=== PATIENT | female | born 1970 | race Caucasian/White ===

== ENCOUNTER → 2016-08-23 | Outpatient (CLI) | payer MEDICAID ==
--- NOTE | 2016-08-23 16:17 | CR ---
EXAMINATION: Two-view chest (PA and Lateral views). HISTORY: Hypertension. FINDINGS: The trachea is midline. The cardiomediastinal silhouette is within normal limits. No pulmonary infil trates, effusions or pneumothorax. Osseous structures appear unremarkable. IMPRESSION: No acute cardiopulmonary process.
== END ==
LOC: MW.CHFP 14:43
PROVIDERS: ATTEND Physician Assistant
DX: I10 Essential (primary) hypertension (principal)
CPT/HCPCS: 36415; 71020; 71020-26; 85025

== ENCOUNTER → 2016-09-28 | Outpatient (CLI) | payer MEDICAID | LOC: MW.CHFP 12:30 | PROVIDERS: ATTEND Nurse Practitioner Family | DX: M10.9 Gout, unspecified (principal) | CPT/HCPCS: 36415; 84550 ==

== ENCOUNTER 2018-07-28 18:58 | Emergency (ER) | payer BC ==
[2018-07-28] MEDS ORDERED: Sodium Chloride 0.9% 2.5 ML Syringe FLUSH PRN (19:13)
[2018-07-28] MEDS ORDERED: Sodium Chloride 0.9% 1,000 ML IV ONE (19:13)
[2018-07-28] MEDS ORDERED: Sodium Chloride 0.9% 10 ML Syringe FLUSH PRN (19:13)
--- NOTE | 2018-07-28 19:16 | EDM.PDOC ---
ED HPI GENERAL MEDICAL PROBLEM - General Chief Complaint: Cardiovascular Problem Stated Complaint: HIGH BP Time Seen by Provider: 07/28/18 19:04 Source of Information: Reports: Patient History Limitations: Reports: No Limitations - History of Present Illness INITIAL COMMENTS - FREE TEXT/NARRATIVE: HISTORY AND PHYSICAL: History of present illness: Patient is a 48-year-old female who presents to the emergency room with concerns of low blood pressure, dizziness, weakness and near syncope. She has been seeing our broker, Dr. Dobbs, for blood pressure management as she has had hypertension. She was last seen on 07/12/18 and had her medications adjusted at that time. This morning she woke up with generalized weakness and felt dizzy like she could "pass out". Initial blood pressure she took was 91/56 second reading approximately an hour later was 89/55. She states she is compliant with her medications and there is no way that she would've taken an additional pill or gotten her medications mixed up. States she has a cardiac ultrasound on 08/13/2018. She denies any fever, chills, chest pain, shortness of breath or cough. Denies any abdominal pain, nausea, vomiting, diarrhea, constipation or dysuria. She has been eating and drinking appropriately. Review of systems: As per history of present illness and below otherwise all systems reviewed and negative. Past medical history: As per history of present illness and as reviewed below otherwise noncontributory. Surgical history: As per history of present illness and as reviewed below otherwise noncontributory. Social history: See social history for further information Family history: As per history of present illness and as reviewed below otherwise noncontributory. Physical exam: General: Well-developed and well-nourished 48-year-old female. Alert and oriented. Nontoxic appearing and in no acute distress. HEENT: Atraumatic, normocephalic, pupils equal and reactive bilaterally, negative for conjunctival pallor or scleral icterus, mucous membranes moist, TMs normal bilaterally, throat clear, neck supple, nontender, trachea midline. No drooling or trismus noted. No meningeal signs. No hot potato voice noted. Lungs: Clear to auscultation, breath sounds equal bilaterally, chest nontender. Heart: S1S2, regular rate and rhythm without overt murmur Abdomen: Soft, nondistended, nontender. Negative for masses or hepatosplenomegaly. Negative for costovertebral tenderness. Pelvis: Stable nontender. Genitourinary: Deferred. Rectal: Deferred. Skin: Intact, warm, dry. No lesions or rashes noted. Extremities: Atraumatic, negative for cords or calf pain. Neurovascular unremarkable. Neuro: Awake, alert, oriented. Cranial nerves II through XII unremarkable. Cerebellum unremarkable. Motor and sensory unremarkable throughout. Exam nonfocal. Notes: 05/10/2018: Patient did have a CTA of the abdomen and pelvis for her hypertensive urgency which showed unremarkable renal arteries bilaterally. Patient does have low potassium today and slightly elevated BUN and creatinine. She states she was put on a new diuretic, chlorthalidone. Which could be the cause of both lab results. Patient states she does feel improved since receiving IV fluids. Did offer her admission for the near syncope sensation. She declines. Encouraged her to follow-up with the broker, calling his office on Sunday as I feel her diuretic may need to be changed. Patient voices understanding and is agreeable to plan of care. Denies further questions or concerns at this time. Supportive care measures were reviewed and discussed. Voices understanding and is agreeable to plan of care. Denies any further questions or concerns at this time. Diagnostics: CBC, CMP, orthostatic vital signs, EKG, one view chest Therapeutics: IV fluids, K-Dur Prescription: K-Dur Impression: Hypokalemia Dizziness Plan: 1. Please follow up with Dr Dobbs (Cardiology) for adjustment of your medications. The diuretic may be causing your potassium. Your potassium today was 3.0. Please take your K-Dur (potassium) as directed. 2. Increase your oral fluids. Position changes slowly 3. Please follow-up with your primary care provider and/or cardiology as we discussed. Return to the ED as needed and as discussed. Definitive disposition and diagnosis as appropriate pending reevaluation and review of above. - Related Data Allergies Allergy/AdvReac Type Severity Reaction Status Date / Time aspirin Allergy Hives Verified 07/28/18 19:15 ibuprofen [From Advil] Allergy Airway Verified 07/28/18 19:11 Tightness Home Meds: Home Meds Chlorthalidone 25 mg PO DAILY 07/28/18 [History] Lisinopril 20 mg PO DAILY 07/28/18 [History] Metoprolol Succinate [Toprol XL 100mg] 100 mg PO DAILY 07/28/18 [History] ED ROS GENERAL - Review of Systems Review Of Systems: ROS reveals no pertinent complaints other than HPI. ED EXAM, GENERAL - Physical Exam Exam: See Below (See dictation) Course - Vital Signs Last Recorded V/S: Last Vital Signs Temp 96.4 F 07/28/18 19:18 Pulse 99 07/28/18 19:18 Resp 18 07/28/18 19:18 BP 163/100 H 07/28/18 19:18 Pulse Ox 100 07/28/18 19:18 - Orders/Labs/Meds Orders: Active Orders 24 hr Category Date Time Status EKG Documentation Completion [RC] STAT Care 07/28/18 19:05 Active Orthostatic Vital Signs [RC] ASDIRECTED Care 07/28/18 19:13 Active Sodium Chloride 0.9% [Normal Saline] 1,000 ml Med 07/28/18 19:13 Active IV STAT Sodium Chloride 0.9% [Saline Flush] Med 07/28/18 19:13 Active 10 ml FLUSH ASDIRECTED PRN Sodium Chloride 0.9% [Saline Flush] Med 07/28/18 19:13 Active 2.5 ml FLUSH ASDIRECTED PRN Saline Lock Insert [OM.PC] Stat Oth 07/28/18 19:13 Ordered Medication Orders Sodium Chloride (Normal Saline) 1,000 mls @ 150 mls/hr IV STAT ONE Stop: 07/29/18 01:52 Last Admin: 07/28/18 19:23 Dose: 150 mls/hr Sodium Chloride (Saline Flush) 10 ml FLUSH ASDIRECTED PRN PRN Reason: Keep Vein Open Sodium Chloride (Saline Flush) 2.5 ml FLUSH ASDIRECTED PRN PRN Reason: Keep Vein Open Labs: Laboratory Tests 07/28/18 07/28/18 07/28/18 Range/Units 19:20 19:20 19:20 WBC 11.60 H (4.0-11.0) K/uL RBC 4.46 (4.30-5.90) M/uL Hgb 13.7 (12.0-16.0) g/dL Hct 41.0 (36.0-46.0) % MCV 91.9 (80.0-98.0) fL MCH 30.7 (27.0-32.0) pg MCHC 33.4 (31.0-37.0) g/dL RDW Std Deviation 48.2 (28.0-62.0) fl RDW Coeff of Praveen 14 (11.0-15.0) % Plt Count 286 (150-400) K/uL MPV 10.20 (7.40-12.00) fL Neut % (Auto) 60.0 (48.0-80.0) % Lymph % (Auto) 27.8 (16.0-40.0) % [place] % (Auto) 11.0 (0.0-15.0) % Eos % (Auto) 0.9 (0.0-7.0) % Baso % (Auto) 0.3 (0.0-1.5) % Neut # (Auto) 7.0 H (1.4-5.7) K/uL Lymph # (Auto) 3.2 H (0.6-2.4) K/uL [place] # (Auto) 1.3 H (0.0-0.8) K/uL Eos # (Auto) 0.1 (0.0-0.7) K/uL Baso # (Auto) 0.0 (0.0-0.1) K/uL Nucleated RBC % 0.0 /100WBC Nucleated RBCs # 0 K/uL Sodium 136 (136-145) mmol/L Potassium 3.0 L (3.5-5.1) mmol/L Chloride 96 L (98-107) mmol/L Carbon Dioxide 22.4 (21.0-32.0) mmol/L BUN 20 H (7.0-18.0) mg/dL Creatinine 2.4 H (0.6-1.0) mg/dL Est Cr Clr Drug Dosing 22.67 mL/min Estimated GFR (MDRD) 21.5 ml/min Glucose 170 H (74-106) mg/dL Calcium 9.5 (8.5-10.1) mg/dL Total Bilirubin 0.9 (0.2-1.0) mg/dL AST 23 (15-37) IU/L ALT 36 (14-63) IU/L Alkaline Phosphatase 112 (46-116) U/L Troponin I < 0.050 (0.000-0.056) ng/mL Total Protein 7.9 (6.4-8.2) g/dL Albumin 4.0 (3.4-5.0) g/dL Globulin 3.9 (2.6-4.0) g/dL Albumin/Globulin Ratio 1.0 (0.9-1.6) Urine Color Urine Appearance Urine pH (5.0-8.0) Ur Specific [place] (1.001-1.035) Urine Protein (NEGATIVE) mg/dL Urine Glucose (UA) (NEGATIVE) mg/dL Urine Ketones (NEGATIVE) mg/dL Urine Occult Blood (NEGATIVE) Urine Nitrite (NEGATIVE) Urine Bilirubin (NEGATIVE) Urine Urobilinogen (<2.0) EU/dL Ur Leukocyte Esterase (NEGATIVE) Urine RBC (0-2/HPF) Urine WBC (0-5/HPF) Ur Epithelial Cells (NONE-FEW) Amorphous Sediment (NEGATIVE) Urine Bacteria (NEGATIVE) Urine Mucus (NONE-MOD) 07/28/18 Range/Units 20:20 WBC (4.0-11.0) K/uL RBC (4.30-5.90) M/uL Hgb (12.0-16.0) g/dL Hct (36.0-46.0) % MCV (80.0-98.0) fL MCH (27.0-32.0) pg MCHC (31.0-37.0) g/dL RDW Std Deviation (28.0-62.0) fl RDW Coeff of Praveen (11.0-15.0) % Plt Count (150-400) K/uL MPV (7.40-12.00) fL Neut % (Auto) (48.0-80.0) % Lymph % (Auto) (16.0-40.0) % [place] % (Auto) (0.0-15.0) % Eos % (Auto) (0.0-7.0) % Baso % (Auto) (0.0-1.5) % Neut # (Auto) (1.4-5.7) K/uL Lymph # (Auto) (0.6-2.4) K/uL [place] # (Auto) (0.0-0.8) K/uL Eos # (Auto) (0.0-0.7) K/uL Baso # (Auto) (0.0-0.1) K/uL Nucleated RBC % /100WBC Nucleated RBCs # K/uL Sodium (136-145) mmol/L Potassium (3.5-5.1) mmol/L Chloride (98-107) mmol/L Carbon Dioxide (21.0-32.0) mmol/L BUN (7.0-18.0) mg/dL Creatinine (0.6-1.0) mg/dL Est Cr Clr Drug Dosing mL/min Estimated GFR (MDRD) ml/min Glucose (74-106) mg/dL Calcium (8.5-10.1) mg/dL Total Bilirubin (0.2-1.0) mg/dL AST (15-37) IU/L ALT (14-63) IU/L Alkaline Phosphatase (46-116) U/L Troponin I (0.000-0.056) ng/mL Total Protein (6.4-8.2) g/dL Albumin (3.4-5.0) g/dL Globulin (2.6-4.0) g/dL Albumin/Globulin Ratio (0.9-1.6) Urine Color YELLOW Urine Appearance CLEAR Urine pH 5.5 (5.0-8.0) Ur Specific [place] 1.015 (1.001-1.035) Urine Protein TRACE H (NEGATIVE) mg/dL Urine Glucose (UA) NEGATIVE (NEGATIVE) mg/dL Urine Ketones NEGATIVE (NEGATIVE) mg/dL Urine Occult Blood NEGATIVE (NEGATIVE) Urine Nitrite NEGATIVE (NEGATIVE) Urine Bilirubin NEGATIVE (NEGATIVE) Urine Urobilinogen 0.2 (<2.0) EU/dL Ur Leukocyte Esterase NEGATIVE (NEGATIVE) Urine RBC 0-2 (0-2/HPF) Urine WBC 0-3 (0-5/HPF) Ur Epithelial Cells FEW (NONE-FEW) Amorphous Sediment LIGHT (NEGATIVE) Urine Bacteria FEW (NEGATIVE) Urine Mucus LIGHT (NONE-MOD) Meds: Medications Generic Name Dose Route Start Last Admin Trade Name Freq PRN Reason Stop Dose Admin Sodium Chloride 1,000 mls @ 150 mls/hr 07/28/18 19:13 07/28/18 19:23 Normal Saline IV 07/29/18 01:52 150 mls/hr STAT ONE Administration Sodium Chloride 10 ml 07/28/18 19:13 Saline Flush FLUSH ASDIRECTED PRN Keep Vein Open Sodium Chloride 2.5 ml 07/28/18 19:13 Saline Flush FLUSH ASDIRECTED PRN Keep Vein Open Discontinued Medications Generic Name Dose Route Start Last Admin Trade Name Josey PRN Reason Stop Dose Admin Potassium Chloride 40 meq 07/28/18 20:05 Klor-Con M20 PO 07/28/18 20:06 NOW STA Departure - Departure Time of Disposition: 20:49 Disposition: Home, Self-Care 01 Clinical Impression: Hypokalemia, Dizziness Instructions: Hypokalemia Referrals: PCP,Unknown [Primary Care Provider] - Forms: ED Department Discharge Additional Instructions: The following information is given to patients seen in the emergency department who are being discharged to home. This information is to outline your options for follow-up care. We provide all patients seen in our emergency department with a follow-up referral. The need for follow-up, as well as the timing and circumstances, are variable depending upon the specifics of your emergency department visit. If you don't have a primary care physician on staff, we will provide you with a referral. We always advise you to contact your personal physician following an emergency department visit to inform them of the circumstance of the visit and for follow-up with them and/or the need for any referrals to a consulting specialist. The emergency department will also refer you to a specialist when appropriate. This referral assures that you have the opportunity for follow-up care with a specialist. All of these measure are taken in an effort to provide you with optimal care, which includes your follow-up. Under all circumstances we always encourage you to contact your private physician who remains a resource for coordinating your care. When calling for follow-up care, please make the office aware that this follow-up is from your recent emergency room visit. If for any reason you are refused follow-up, please contact the [facility] Emergency Department at and asked to speak to the emergency department charge nurse. [facility] [address] [place] [id number] [id number] 1. Please follow up with Dr Dobbs (Cardiology) for adjustment of your medications. The diuretic may be causing your potassium. Your potassium today was 3.0 (low). Please take your K-Dur (potassium) as directed; you may crush tablet if needed. 2. Increase your oral fluids. Position changes slowly 3. Please follow-up with your primary care provider and/or cardiology as we discussed. Return to the ED as needed and as discussed. - My Orders Last 24 Hours: My Active Orders 07/28/18 19:05 EKG Documentation Completion [RC] STAT 07/28/18 19:13 Orthostatic Vital Signs [RC] ASDIRECTED Sodium Chloride 0.9% [Normal Saline] 1,000 ml IV STAT Sodium Chloride 0.9% [Saline Flush] 10 ml FLUSH ASDIRECTED PRN Sodium Chloride 0.9% [Saline Flush] 2.5 ml FLUSH ASDIRECTED PRN Saline Lock Insert [OM.PC] Stat - Assessment/Plan Last 24 Hours: My Active Orders 07/28/18 19:05 EKG Documentation Completion [RC] STAT 07/28/18 19:13 Orthostatic Vital Signs [RC] ASDIRECTED Sodium Chloride 0.9% [Normal Saline] 1,000 ml IV STAT Sodium Chloride 0.9% [Saline Flush] 10 ml FLUSH ASDIRECTED PRN Sodium Chloride 0.9% [Saline Flush] 2.5 ml FLUSH ASDIRECTED PRN Saline Lock Insert [OM.PC] Stat
[2018-07-28] MEDS ORDERED: Potassium Chloride 20 MEQ Tab.ER PO STA (20:05)
--- NOTE | 2018-07-28 20:25 | CR ---
INDICATION: near syncope INDICATION: Near syncope. TECHNIQUE: Chest 1 view. COMPARISON: None FINDINGS: Cardiovascular and mediastinum: Heart size and vasculature are normal in caliber and appearance. Mediastinum is within normal limits. Lungs and pleural space: Lungs are clear. No sign of infiltrate or mass. No sign of pleural effusion. No pneumothorax. Bones and soft tissues: No significant findings. IMPRESSION: Lungs are clear. Dictated by Jay Garcia MD @ 07/28/2018 8:24:12 PM Dictated by: Jay Garcia MD @ 07/28/2018 20:24:21 (Electronically Signed)
== END 2018-07-28 21:10 | disposition home or self-care (01) ==
LOC: MW.ED 18:58
DX: R42 Dizziness and giddiness (principal); E87.6 Hypokalemia; Z88.8 Allergy status to other drugs, medicaments and biological substances; Z79.899 Other long term (current) drug therapy
CPT/HCPCS: 71045; 80053; 81001; 84484; 85025; 93005; 96360; 96361; 99284; A9270; J7040

== ENCOUNTER 2019-07-30 07:11 | Day surgery (SDC) | payer BC ==
[~2019-07-30 07:11] MED LIST: Lactated Ringers 1,000 ML IV SCH
--- NOTE | 2019-07-30 07:51 | PCM.PREANE ---
Preanesthetic Assessment - Anesthesia/Transfusion/Family Hx Anesthesia History: Prior Anesthesia Without Reaction Family History of Anesthesia Reaction: No Transfusion History: No Prior Transfusion(s) Intubation History: Unknown - Review of Systems General: No Symptoms Pulmonary: No Symptoms Cardiovascular: No Symptoms Gastrointestinal: Hematochezia, Other (rectal pain) Neurological: No Symptoms Other: Reports: None - Physical Assessment Height: 5 ft 2 in Weight: 72.121 kg ASA Class: 2 Mental Status: Alert & Oriented x3 Airway Class: Mallampati = 2 Dentition: Reports: Normal Dentition (retainer holders at the bottom 2 teeth) Thyro-Mental Finger Breadths: 3 Mouth Opening Finger Breadths: 3 ROM/Head Extension: Full Lungs: Clear to Auscultation, Normal Respiratory Effort Cardiovascular: Regular Rate, Regular Rhythm - Lab Values: Laboratory Last Values Urine HCG, Qual NEGATIVE (NEGATIVE) 07/30/19 07:30 - Allergies Allergies/Adverse Reactions: Allergies Allergy/AdvReac Type Severity Reaction Status Date / Time aspirin Allergy Hives Verified 07/25/19 10:02 - Blood Blood Available: No - Anesthesia Plan Pre-Op Medication Ordered: None - Acknowledgements Anesthesia Type Planned: MAC Pt an Appropriate Candidate for the Planned Anesthesia: Yes Alternatives and Risks of Anesthesia Discussed w Pt/Guardian: Yes Pt/Guardian Understands and Agrees with Anesthesia Plan: Yes PreAnesthesia Questionnaire HEENT History: Reports: Other (See Below) Other HEENT History: wears glasses/contacts, has 2 pieces of metal wire cemented to her teeth from previous braces Cardiovascular History: Reports: High Cholesterol, Hypertension Gastrointestinal History: Reports: GERD, Hiatal Hernia Musculoskeletal History: Reports: Back Pain, Chronic, Gout, Neck Pain, Chronic Neurological History: Reports: Headaches, Chronic, Seizure, Other (See Below) Other Neuro History: hx of febrile seizures as an , hx of motion sickness Psychiatric History: Reports: Anxiety Endocrine/Metabolic History: Reports: Other (See Below) Other Endocrine/Metabolic History: thyroid is being monitored - Infectious Disease History Infectious Disease History: Reports: Chicken Pox - Past Surgical History Head Surgeries/Procedures: Reports: None HEENT Surgical History: Reports: Tonsillectomy GI Surgical History: Reports: Cholecystectomy, Colonoscopy, Other (See Below) Other GI Surgeries/Procedures: Excision of Pilonidal cyst Female Surgical History: Reports: D&C, LEEP - SUBSTANCE USE Smoking Status *Q: Current Some Day Smoker Tobacco Use Within Last Twelve Months: Cigarettes Recreational Drug Use History: No - HOME MEDS Home Medications: Home Meds Chlorthalidone 25 mg PO QAM 07/28/18 [History] Lisinopril 20 mg PO QAM 07/28/18 [History] Metoprolol Succinate [Toprol XL 100mg] 100 mg PO QAM 07/28/18 [History] C/Sourcherry/Celery/Grape Seed [Tart Gray] 1 cap PO DAILY 07/25/19 [History] Cholecalciferol (Vitamin D3) [Vitamin D3] 1,000 unit PO DAILY 07/25/19 [History] Hydrocortisone [Procto-Med Hc] 1 - 2 applic TOP BID PRN 07/25/19 [History] Ibuprofen 400 mg PO BID 07/25/19 [History] LORazepam [Ativan] 0.25 - 0.5 mg PO DAILY PRN 07/25/19 [History] Potassium Chloride [Klor-Con] 40 meq PO QAM 07/25/19 [History] - CURRENT (IN HOUSE) MEDS Current Meds: Current Medications Lactated Ringer's (Ringers, Lactated) 1,000 mls @ 125 mls/hr IV ASDIRECTED MARY
[2019-07-30] MEDS ORDERED: Midazolam 1 MG/ML 2 ML SDV ONE (08:37)
[2019-07-30] MEDS ORDERED: Propofol 200 MG/20 ML SDV ONE ×2 (08:37→09:50)
[2019-07-30] MEDS ORDERED: Glycopyrrolate 0.2 MG/ML SDV ONE (08:40)
--- NOTE | 2019-07-30 10:35 | PCM.OPNOTE ---
- General Post-Op/Procedure Note Date of Surgery/Procedure: 07/30/19 Operative Procedure(s): egd w bx. colonoscopy w snare Findings: see [id number] Pre Op Diagnosis: tenesmus,BRBPR and early satiety Post-Op Diagnosis: Same Anesthesia Technique: Moderate Sedation Primary Surgeon: Lauri George Pathology: egd bx colon random bx 15 cm when scope advance, 5 mm sessile polyp, snared. Complications: None Condition: Good Free Text/Narrative:: Intake & Output 07/29/19 07/30/19 07/30/19 22:59 06:59 14:59 Intake Total 900 Balance 900
--- NOTE | 2019-07-30 10:42 | PCM.POSTAN ---
POST ANESTHESIA ASSESSMENT - MENTAL STATUS Mental Status: Alert, Oriented - VITAL SIGNS Vital Signs: Last Vital Signs Temp 36.9 C 07/30/19 10:32 Pulse 67 07/30/19 10:32 Resp 14 07/30/19 10:32 BP 99/71 07/30/19 10:32 Pulse Ox 99 07/30/19 10:32 - RESPIRATORY Respiratory Status: Respiratory Rate WNL, Airway Patent, O2 Saturation Stable - CARDIOVASCULAR CV Status: Pulse Rate WNL, Blood Pressure Stable - GASTROINTESTINAL GI Status: No Symptoms - PAIN Pain Score: 0 - POST OP HYDRATION Hydration Status: Adequate & Stable - OBSERVATIONS Free Text/Narrative:: No anesthesia problems
--- NOTE | 2019-07-30 10:58 | PCM48HPAN ---
Post Anesthesia Note - EVALUATION WITHIN 48HRS OF ANESTHETIC Vital Signs in Normal Range: Yes Patient Participated in Evaluation: Yes Respiratory Function Stable: Yes Airway Patent: Yes Cardiovascular Function Stable: Yes Hydration Status Stable: Yes Pain Control Satisfactory: Yes Nausea and Vomiting Control Satisfactory: Yes Mental Status Recovered: Yes Vital Signs: Last Vital Signs Temp 36.9 C 07/30/19 10:32 Pulse 62 07/30/19 10:50 Resp 16 07/30/19 10:50 BP 112/75 07/30/19 10:50 Pulse Ox 100 07/30/19 10:50 - COMMENTS/OBSERVATIONS Free Text/Narrative:: No anesthesia problems.
--- NOTE | 2019-07-30 16:26 | OR ---
SURGEON: Lauri George MD DATE OF PROCEDURE: 07/30/2019 PREOPERATIVE DIAGNOSES: Rectal bleeding and early satiety. PROCEDURES PERFORMED: Esophagogastroduodenoscopy with biopsy and colonoscopy with snare polypectomy. DESCRIPTION OF PROCEDURE: EGD: The patient was taken to the endoscopy room, and with the DIGESTER OPERATOR HELPER, Diprivan was administered. A well-lubricated EGD scope was gently inserted through the oropharynx, down the esophagus, passing through the gastroesophageal junction, into the stomach. The mucosa was examined upon the passage. Any etiology will be noted. Once in the stomach, we continued to advance to the distal antrum, passed through the pylorus into the second portion of the duodenum. Again, the mucosa was examined for any abnormality and etiology. The scope was then retrieved back to the stomach and then retroflexed to look at the fundus of the stomach. If a biopsy was indicated, we will biopsy the antrum, body, and gastroesophageal junction. The air will be sucked out while the scope is retrieved to reduce the patient's discomfort. The patient tolerated the procedure well. There were no intraoperative complications. Dr. George was present through the whole procedure. Prior to surgery, a time-out had been called, the patient identified, procedure identified and antibiotic administered. The patient was taken to the endoscopy room. A time out was called, patient identified, and procedure identified. Diprivan was then administrated. Patient went from awake to sleep, hearing doctor talking or door closing is normal. Perineum inspection and digital examination were then performed. A well- lubricated colonoscope was gently inserted through the rectum, advanced past the rectosigmoid junction, the descending colon, splenic flexure, transverse colon, hepatic flexure, ascending colon, arrived to the cecum. Cecum was identified as dictated in the finding. Then the scope was carefully withdrawn while attention was paid to the mucosal surface for any abnormality. Air will be sucked out during the scope withdrawal. At the rectum, retroflexed to examine any rectal diseases, fistula or hemorrhoids. During mucosal examination, abnormality or polyp encountered. Using snare equipment, the abnormality or the polyp was then snared off using electrocautery. The patient tolerated procedure well. There were no intraoperative complications, and Dr. George was present throughout the whole procedure. FINDINGS: EGD findings: 1. The patient is easily sedated with DIGESTER OPERATOR HELPER and Diprivan, the patient is soundly snoring. 2. Oropharynx and proximal esophagus are free of disease. GE junction at 40 shows mild salmon-colored change consistent with mild GERD. Stomach rugae are normal in appearance and antrum looks fine. Duodenum grossly normal. Retroflexed look at the fundus of the stomach, there is no hiatal hernia. Biopsy done at antrum, body, GE junction at 40, and sucked out the air while scope pulling out. During the whole study, there is no blood, ulcer, bile, or food particle observed. Colonoscopy findings: 1. The patient is easily sedated with DIGESTER OPERATOR HELPER and Diprivan, the patient is soundly snoring. 2. Bowel prep is average with moderate amount of liquid stool, no semi-formed stool. 3. Colon is rather straightforward. Cecum indicated by ileocecal fold, one-to- one indentation, appendiceal orifice. ScopeGuide is pointing south. Light emittance is not observed. Mucosa examined upon scope pulling out with constant irrigation. The patient has mild diverticulosis at the left colon. No signs or symptoms of diverticulitis, just a few diverticula. The patient has a small 5 mm sessile polyp at distance 15 cm when the scope go in and it was snared, captured, and sent for pathology. Other than that, no other mass, growth, inflammation, stricture, ulceration, AV malformation, bleeding, none of those. The patient has mild external hemorrhoids, no internal hemorrhoids. Examination of the rectum area, there is no gross abnormality. MAX / MARIA DE JESUS /[id number]
== END 2019-07-30 11:20 | disposition home or self-care (01) ==
LOC: MW.SDS 07:11
PROVIDERS: ATTEND Surgery
DX: D12.6 Benign neoplasm of colon, unspecified (principal); K57.30 Diverticulosis of large intestine without perforation or abscess without bleeding; K22.8 Other specified diseases of esophagus; K20.9 Esophagitis, unspecified; K64.4 Residual hemorrhoidal skin tags; I10 Essential (primary) hypertension; E78.5 Hyperlipidemia, unspecified; F41.9 Anxiety disorder, unspecified; F17.200 Nicotine dependence, unspecified, uncomplicated; Z79.899 Other long term (current) drug therapy; Z98.890 Other specified postprocedural states
CPT/HCPCS: 43239; 45385; 81025; J2250; J2704; J3490; J7120; 88305; 88312

== ENCOUNTER 2022-05-08 11:24 | Emergency (ER) | payer BC ==
[2022-05-08 13:27] LABS: CORONAVIRUS COVID-19 NAA NEGATIVE (NEGATIVE); INFLUENZA A NAA POSITIVE (NEGATIVE); INFLUENZA B NAA NEGATIVE (NEGATIVE); RESPIRATORY SYNCYTIAL VIR NAA NEGATIVE (NEGATIVE)
[2022-05-08] MEDS ORDERED: Albuterol 8 GM Inhaler INH ONE (14:20)
== END 2022-05-08 19:47 | disposition home or self-care (01) ==
LOC: MW.ED 11:24
DX: J10.1 Influenza due to other identified influenza virus with other respiratory manifestations (principal); E78.00 Pure hypercholesterolemia, unspecified; I10 Essential (primary) hypertension; Z88.8 Allergy status to other drugs, medicaments and biological substances; Z79.899 Other long term (current) drug therapy; Z20.822 Contact with and (suspected) exposure to COVID-19
CPT/HCPCS: 0241U; 71045; 93005; 99284; A9270

== ENCOUNTER 2022-05-14 13:44 | Emergency (ER) | payer BC ==
[2022-05-14] MEDS ORDERED: predniSONE 20 MG Tab PO STA (16:14)
[2022-05-14] MEDS ORDERED: Albuterol/Ipratropium 3.0-0.5 MG/3 ML Neb Soln NEB ONE (16:15)
[2022-05-14 17:07] LABS: CARBON DIOXIDE,CO2 28.2 mmol/L (21.0-32.0)
== END 2022-05-14 18:00 | disposition home or self-care (01) ==
LOC: MW.ED 13:44
DX: R06.2 Wheezing (principal); R05.9 Cough, unspecified; I10 Essential (primary) hypertension; M10.9 Gout, unspecified; Z79.899 Other long term (current) drug therapy; Z88.8 Allergy status to other drugs, medicaments and biological substances
CPT/HCPCS: 36415; 71046; 80053; 85025; 99285; A9270; J7620-GY

== ENCOUNTER 2022-09-27 10:54 | Day surgery (SDC) | payer BC ==
[2022-09-27] MEDS ORDERED: Lidocaine 2% 5 ML SDV ONE (12:21)
[2022-09-27] MEDS ORDERED: Propofol 200 MG/20 ML SDV ONE ×2 (12:21→12:53)
== END 2022-09-27 14:05 | disposition home or self-care (01) ==
LOC: MW.SDS 10:54
PROVIDERS: ATTEND Surgery
DX: D12.0 Benign neoplasm of cecum (principal); K29.50 Unspecified chronic gastritis without bleeding; K57.30 Diverticulosis of large intestine without perforation or abscess without bleeding; K21.00 Gastro-esophageal reflux disease with esophagitis, without bleeding; K31.89 Other diseases of stomach and duodenum; F41.9 Anxiety disorder, unspecified; E87.6 Hypokalemia; E78.5 Hyperlipidemia, unspecified; I10 Essential (primary) hypertension; D36.9 Benign neoplasm, unspecified site; D64.9 Anemia, unspecified; E79.0 Hyperuricemia without signs of inflammatory arthritis and tophaceous disease; Z90.49 Acquired absence of other specified parts of digestive tract; K21.9 Gastro-esophageal reflux disease without esophagitis; Z86.010 Personal history of colon polyps; Z90.89 Acquired absence of other organs; Z88.6 Allergy status to analgesic agent; Z79.82 Long term (current) use of aspirin; Z79.899 Other long term (current) drug therapy; F17.210 Nicotine dependence, cigarettes, uncomplicated
CPT/HCPCS: 43239; 43280; J2704; J7120; J3490

== ENCOUNTER 2022-11-16 11:49 | Emergency (ER) | payer BC | END 2022-11-16 13:18 | disposition home or self-care (01) | LOC: MW.ED 11:49 | DX: M62.830 Muscle spasm of back (principal); I10 Essential (primary) hypertension; Z72.0 Tobacco use; Z88.8 Allergy status to other drugs, medicaments and biological substances; Z79.899 Other long term (current) drug therapy | CPT/HCPCS: 99283 ==

== ENCOUNTER 2023-05-19 08:25 | Emergency (ER) | payer BC ==
[2023-05-19] MEDS ORDERED: Sodium Chloride 0.9% 10 ML Syringe FLUSH PRN (08:44)
[2023-05-19] MEDS ORDERED: Lactated Ringers 1,000 ML IV ONE (08:44)
[2023-05-19] MEDS ORDERED: Ondansetron 4 MG/2 ML SDV IVPUSH ONE (08:44)
[2023-05-19] MEDS ORDERED: Sodium Chloride 0.9% 2.5 ML Syringe FLUSH PRN (08:44)
[2023-05-19] MEDS ORDERED: Loperamide 2 MG Cap PO STA (08:45)
[2023-05-19 08:54] LABS: BASOPHILS ABSOLUTE AUTO 0.05 K/uL (0.00-0.20); BASOPHILS PERCENT AUTO 0.6 % (0.0-1.0); EOSINOPHILS ABSOLUTE AUTO 0.05 K/uL (0.00-0.45); EOSINOPHILS PERCENT AUTO 0.6 % (0.0-6.0); HEMATOCRIT 34.9 % (37.0-47.0); IMMATURE GRAN ABSOLUTE AUTO 0.04 K/uL (0.00-0.05); IMMATURE GRAN PERCENT AUTO 0.5 % (0.0-0.4); LYMPHOCYTES ABSOLUTE AUTO 0.54 K/uL (1.00-4.80); LYMPHOCYTES PERCENT AUTO 6.7 % (24.0-44.0); MEAN CORPUSCULAR HEMOGLOBIN 28.7 pg (28.0-32.0); MEAN CORPUSCULAR HGB CONC 34.4 g/dL (32.0-36.0); MEAN CORPUSCULAR VOLUME 83.5 fL (83.0-99.0); MEAN PLATELET VOLUME 9.6 fL (9.4-12.3); MONOCYTES ABSOLUTE AUTO 0.48 K/uL (0.00-0.80); MONOCYTES PERCENT AUTO 5.9 % (0.0-8.0); NEUTROPHILS ABSOLUTE AUTO 6.94 K/uL (1.80-7.70); NEUTROPHILS PERCENT AUTO 85.7 % (41.0-71.0); PLATELET COUNT,PLT 305 K/uL (150-400); RED BLOOD CELL COUNT 4.18 M/uL (4.10-5.30)
[2023-05-19 09:02] LABS: ALBUMIN 3.7 g/dL (3.4-5.0); BILIRUBIN TOTAL 0.6 mg/dL (0.2-1.0); CALCIUM 8.8 mg/dL (8.5-10.1); CARBON DIOXIDE,CO2 25.2 mmol/L (21.0-32.0); CREATININE 0.9 mg/dL (0.6-1.0); EST CRCL DRUG DOSING (CG) 57.83 mL/min; POTASSIUM,K 3.6 mmol/L (3.5-5.1); PROTEIN TOTAL,TP 7.5 g/dL (6.4-8.2)
[2023-05-19 09:37] LABS: APPEARANCE,URINE CLEAR; BILIRUBIN,URINE NEGATIVE (NEGATIVE); COLOR,URINE YELLOW; GLUCOSE,URINE NEGATIVE (NEGATIVE); KETONES,URINE NEGATIVE (NEGATIVE); LEUKOCYTE ESTERASE,URINE NEGATIVE (NEGATIVE); NITRITE,URINE NEGATIVE (NEGATIVE); OCCULT BLOOD,URINE NEGATIVE (NEGATIVE); PROTEIN,URINE NEGATIVE (NEGATIVE); UROBILINOGEN,URINE 0.2 EU/dL (<2.0)
== END 2023-05-19 10:24 | disposition home or self-care (01) ==
LOC: MW.ED 08:25
DX: R19.7 Diarrhea, unspecified (principal); I10 Essential (primary) hypertension; Z88.8 Allergy status to other drugs, medicaments and biological substances; Z79.899 Other long term (current) drug therapy; Z90.49 Acquired absence of other specified parts of digestive tract
CPT/HCPCS: 36415; 80053; 81003; 81025; 83690; 85025; 96361; 96374; 99284; A9270; J2405; J3490; J7120

== ENCOUNTER 2023-10-31 17:37 | Emergency (ER) | payer BC ==
[2023-10-31] MEDS: Sodium Chloride 0.9% 2.5 ML Syringe FLUSH PRN (18:17)
[2023-10-31] MEDS: Sodium Chloride 0.9% 10 ML Syringe FLUSH PRN (18:17)
[2023-10-31] MEDS: Morphine 4 MG/ML Syringe IVPUSH ONE (18:20)
[2023-10-31] MEDS: Ondansetron 4 MG/2 ML SDV IVPUSH ONE (18:20)
[2023-10-31] MEDS: Sodium Chloride 0.9% 1,000 ML IV ONE (18:20)
[2023-10-31 18:22] LABS: BASOPHILS ABSOLUTE AUTO 0.09 K/uL (0.00-0.20); BASOPHILS PERCENT AUTO 1.1 % (0.0-1.0); EOSINOPHILS ABSOLUTE AUTO 0.16 K/uL (0.00-0.45); EOSINOPHILS PERCENT AUTO 1.9 % (0.0-6.0); HEMATOCRIT 35.1 % (37.0-47.0); HEMOGLOBIN 11.8 g/dL (12.0-16.0); IMMATURE GRAN ABSOLUTE AUTO 0.05 K/uL (0.00-0.05); IMMATURE GRAN PERCENT AUTO 0.6 % (0.0-0.4); LYMPHOCYTES ABSOLUTE AUTO 2.24 K/uL (1.00-4.80); LYMPHOCYTES PERCENT AUTO 26.4 % (24.0-44.0); MEAN CORPUSCULAR HEMOGLOBIN 30.3 pg (28.0-32.0); MEAN CORPUSCULAR HGB CONC 33.6 g/dL (32.0-36.0); MEAN PLATELET VOLUME 9.2 fL (9.4-12.3); MONOCYTES ABSOLUTE AUTO 0.87 K/uL (0.00-0.80); MONOCYTES PERCENT AUTO 10.2 % (0.0-8.0); NEUTROPHILS ABSOLUTE AUTO 5.08 K/uL (1.80-7.70); NEUTROPHILS PERCENT AUTO 59.8 % (41.0-71.0); PLATELET COUNT,PLT 257 K/uL (150-400); WHITE BLOOD CELL COUNT,WBC 8.49 K/uL (3.9-11.3)
[2023-10-31 18:47] LABS: ALANINE AMINOTRANSFERASE,ALT 34 IU/L (14-63); ALBUMIN 3.3 g/dL (3.4-5.0); ALKALINE PHOSPHATASE 76 U/L (46-116); ASPARTATE AMNIOTRANSFERASE,AST 24 IU/L (15-37); BILIRUBIN TOTAL 0.5 mg/dL (0.2-1.0); BLOOD UREA NITROGEN,BUN 15 mg/dL (7.0-18.0); CHLORIDE,CL 99 mmol/L (98-107); GLUCOSE RANDOM 100 mg/dL (74-106); LIPASE 47 U/L (16-77); POTASSIUM,K 3.2 mmol/L (3.5-5.1); PROTEIN TOTAL,TP 7.2 g/dL (6.4-8.2); SODIUM,NA 137 mmol/L (136-145)
[2023-10-31 19:04] LABS: A/G RATIO 0.9 (0.9-1.6); ESTIMATED GFR 67 mL/min (>60)
[2023-10-31 19:17] LABS: APPEARANCE,URINE SLT CLOUDY; BILIRUBIN,URINE NEGATIVE (NEGATIVE); COLOR,URINE YELLOW; GLUCOSE,URINE NEGATIVE (NEGATIVE); KETONES,URINE NEGATIVE (NEGATIVE); LEUKOCYTE ESTERASE,URINE SMALL (NEGATIVE); NITRITE,URINE POSITIVE (NEGATIVE); OCCULT BLOOD,URINE NEGATIVE (NEGATIVE); PROTEIN,URINE NEGATIVE (NEGATIVE); UROBILINOGEN,URINE 0.2 EU/dL (<2.0)
[2023-10-31] MEDS: Iopamidol 755 MG/ML 500 ML Multipack Bottle IVPUSH STA (19:46)
[2023-10-31 20:51] LABS: BACTERIA,URINE 3+ (NEGATIVE); EPITHELIAL CELLS,URINE FEW (NONE-FEW); RBC,URINE 0-2 (0-2/HPF)
[2023-10-31] MEDS: cefTRIAXone 1 GM in Sodium Chloride 0.9% 50 ML IV ONE (20:55)
== END 2023-10-31 21:26 | disposition home or self-care (01) ==
LOC: MW.ED 17:37
DX: N39.0 Urinary tract infection, site not specified (principal); I10 Essential (primary) hypertension; K21.9 Gastro-esophageal reflux disease without esophagitis; Z90.49 Acquired absence of other specified parts of digestive tract; Z88.6 Allergy status to analgesic agent; Z79.899 Other long term (current) drug therapy
CPT/HCPCS: 36415; 74177; 80053; 81001; 83690; 84484; 85025; 87086; 96361; 96365; 96375; 99284; J0696; J2270; J2405; J3490; J7030; Q9967

== ENCOUNTER 2024-02-06 08:17 | Day surgery (SDC) | payer BC ==
[2024-02-06] MEDS: Lactated Ringers 1,000 ML IV SCH (08:47)
[2024-02-06] MEDS ORDERED: propofoL 50 ML ONE (11:54)
[2024-02-06] MEDS ORDERED: dexmedeTOMIDine HCl 200 MCG/2 ML SDV ONE (12:06)
[2024-02-06] MEDS ORDERED: Propofol 200 MG/20 ML SDV ONE (12:36)
== END 2024-02-06 13:29 | disposition home or self-care (01) ==
LOC: MW.SDS 08:17
PROVIDERS: ATTEND Surgery
DX: D12.0 Benign neoplasm of cecum (principal); K29.50 Unspecified chronic gastritis without bleeding; K21.00 Gastro-esophageal reflux disease with esophagitis, without bleeding; F41.9 Anxiety disorder, unspecified; E78.5 Hyperlipidemia, unspecified; F17.210 Nicotine dependence, cigarettes, uncomplicated
CPT/HCPCS: 43239; 45380; J2704; J7120; 00813; J3490

== ENCOUNTER 2024-09-15 10:59 | Emergency (ER) | payer BC ==
[2024-09-15 12:50] LABS: BASOPHILS ABSOLUTE AUTO 0.08 K/uL (0.00-0.20); BASOPHILS PERCENT AUTO 0.8 % (0.0-1.0); EOSINOPHILS ABSOLUTE AUTO 0.09 K/uL (0.00-0.45); EOSINOPHILS PERCENT AUTO 0.9 % (0.0-6.0); HEMATOCRIT 37.2 % (37.0-47.0); HEMOGLOBIN 12.4 g/dL (12.0-16.0); IMMATURE GRAN ABSOLUTE AUTO 0.06 K/uL (0.00-0.05); IMMATURE GRAN PERCENT AUTO 0.6 % (0.0-0.4); LYMPHOCYTES ABSOLUTE AUTO 1.74 K/uL (1.00-4.80); LYMPHOCYTES PERCENT AUTO 16.9 % (24.0-44.0); MEAN CORPUSCULAR HEMOGLOBIN 30.4 pg (28.0-32.0); MEAN CORPUSCULAR HGB CONC 33.3 g/dL (32.0-36.0); MEAN CORPUSCULAR VOLUME 91.2 fL (83.0-99.0); MEAN PLATELET VOLUME 9.1 fL (9.4-12.3); MONOCYTES ABSOLUTE AUTO 1.05 K/uL (0.00-0.80); MONOCYTES PERCENT AUTO 10.2 % (0.0-8.0); NEUTROPHILS ABSOLUTE AUTO 7.28 K/uL (1.80-7.70); NEUTROPHILS PERCENT AUTO 70.6 % (41.0-71.0); PLATELET COUNT,PLT 291 K/uL (150-400); RED BLOOD CELL COUNT 4.08 M/uL (4.10-5.30)
[2024-09-15 13:05] LABS: INR 1.01 (0.86-1.11); PTT,PARTIAL THROMBOPLSTIN TIME 24.8 SEC (23.9-30.7)
[2024-09-15 13:15] LABS: ALANINE AMINOTRANSFERASE,ALT 33 IU/L (14-63); ALBUMIN 3.7 g/dL (3.4-5.0); ALKALINE PHOSPHATASE 102 U/L (46-116); ASPARTATE AMNIOTRANSFERASE,AST 30 IU/L (15-37); BILIRUBIN TOTAL 0.8 mg/dL (0.2-1.0); BLOOD UREA NITROGEN,BUN 13 mg/dL (7.0-18.0); CARBON DIOXIDE,CO2 26.2 mmol/L (21.0-32.0); CHLORIDE,CL 92 mmol/L (98-107); CREATININE 1.1 mg/dL (0.6-1.0); EST CRCL DRUG DOSING (CG) 46.24 mL/min; GLUCOSE RANDOM 99 mg/dL (74-106); LIPASE 30 U/L (16-77); MAGNESIUM 1.5 mg/dL (1.8-2.4); POTASSIUM,K 4.3 mmol/L (3.5-5.1); PROTEIN TOTAL,TP 7.5 g/dL (6.4-8.2); SODIUM,NA 131 mmol/L (136-145)
[2024-09-15 13:27] LABS: ESTIMATED GFR 60 mL/min (>60)
[2024-09-15 13:29] LABS: CALCIUM 9.4 mg/dL (8.5-10.1)
[2024-09-15] MEDS: Magnesium Sulfate 2 GM/50 mL 2 GM in Premix Bag 1 BAG IV ONE (14:00)
[2024-09-15] MEDS: Sodium Chloride 0.9% 1,000 ML IV ONE (14:01)
[2024-09-15 15:13] LABS: APPEARANCE,URINE CLEAR; BILIRUBIN,URINE NEGATIVE (NEGATIVE); COLOR,URINE YELLOW; GLUCOSE,URINE NEGATIVE (NEGATIVE); KETONES,URINE NEGATIVE (NEGATIVE); LEUKOCYTE ESTERASE,URINE NEGATIVE (NEGATIVE); NITRITE,URINE POSITIVE (NEGATIVE); OCCULT BLOOD,URINE NEGATIVE (NEGATIVE); PROTEIN,URINE NEGATIVE (NEGATIVE); UROBILINOGEN,URINE 0.2 EU/dL (<2.0)
[2024-09-15 16:21] LABS: BACTERIA,URINE 2+ (NEGATIVE); EPITHELIAL CELLS,URINE RARE (NONE-FEW); RBC,URINE 0-1 (0-2/HPF); WBC,URINE 0-1 (0-5/HPF)
== END 2024-09-15 16:16 | disposition home or self-care (01) ==
LOC: MW.ED 10:59
DX: E83.42 Hypomagnesemia (principal); N39.0 Urinary tract infection, site not specified; Z75.3 Unavailability and inaccessibility of health-care facilities; I10 Essential (primary) hypertension; K21.9 Gastro-esophageal reflux disease without esophagitis; Z90.49 Acquired absence of other specified parts of digestive tract; Z79.899 Other long term (current) drug therapy; Z88.8 Allergy status to other drugs, medicaments and biological substances
CPT/HCPCS: 36415; 71045; 80053; 81001; 83690; 83735; 84484; 85025; 85610; 85730; 87086; 93005; 96365; 99285; J3475; J7030; 93010; 99284

== ENCOUNTER 2024-10-01 10:58 | Emergency (ER) | payer BC ==
[2024-10-01 12:05] LABS: BASOPHILS ABSOLUTE AUTO 0.07 K/uL (0.00-0.20); BASOPHILS PERCENT AUTO 0.9 % (0.0-1.0); EOSINOPHILS ABSOLUTE AUTO 0.16 K/uL (0.00-0.45); EOSINOPHILS PERCENT AUTO 2.1 % (0.0-6.0); HEMATOCRIT 34.5 % (37.0-47.0); HEMOGLOBIN 11.9 g/dL (12.0-16.0); IMMATURE GRAN ABSOLUTE AUTO 0.03 K/uL (0.00-0.05); IMMATURE GRAN PERCENT AUTO 0.4 % (0.0-0.4); LYMPHOCYTES ABSOLUTE AUTO 1.65 K/uL (1.00-4.80); LYMPHOCYTES PERCENT AUTO 22.1 % (24.0-44.0); MEAN CORPUSCULAR HEMOGLOBIN 31.2 pg (28.0-32.0); MEAN CORPUSCULAR HGB CONC 34.5 g/dL (32.0-36.0); MEAN CORPUSCULAR VOLUME 90.6 fL (83.0-99.0); MEAN PLATELET VOLUME 8.9 fL (9.4-12.3); MONOCYTES PERCENT AUTO 10.7 % (0.0-8.0); NEUTROPHILS ABSOLUTE AUTO 4.77 K/uL (1.80-7.70); NEUTROPHILS PERCENT AUTO 63.8 % (41.0-71.0); PLATELET COUNT,PLT 250 K/uL (150-400); RED BLOOD CELL COUNT 3.81 M/uL (4.10-5.30); WHITE BLOOD CELL COUNT,WBC 7.48 K/uL (3.9-11.3)
[2024-10-01 12:26] LABS: CALCIUM 9.1 mg/dL (8.5-10.1); CARBON DIOXIDE,CO2 28.9 mmol/L (21.0-32.0); CREATININE 1.1 mg/dL (0.6-1.0); EST CRCL DRUG DOSING (CG) 46.24 mL/min; MAGNESIUM 1.3 mg/dL (1.8-2.4); POTASSIUM,K 3.5 mmol/L (3.5-5.1)
[2024-10-01] MEDS ORDERED: Magnesium Sulfate (4.06 MEQ/ML) 5 GM/10 ML SDV IV ONE (12:28)
[2024-10-01] MEDS: Magnesium Sulfate 2 GM/50 mL 2 GM in Premix Bag 1 BAG IV ONE (13:15)
== END 2024-10-01 14:42 | disposition home or self-care (01) ==
LOC: MW.ED 10:58
DX: E83.42 Hypomagnesemia (principal); R00.2 Palpitations; I10 Essential (primary) hypertension; K21.9 Gastro-esophageal reflux disease without esophagitis; Z79.899 Other long term (current) drug therapy; Z88.5 Allergy status to narcotic agent
CPT/HCPCS: 36415; 80048; 83735; 85025; 93005; 96365; 99285; J3475; 93010; 99283

== ENCOUNTER 2024-10-14 10:43 | Emergency (ER) | payer BC ==
[2024-10-14 11:10] LABS: APPEARANCE,URINE CLEAR; BILIRUBIN,URINE NEGATIVE (NEGATIVE); COLOR,URINE YELLOW; GLUCOSE,URINE NEGATIVE (NEGATIVE); KETONES,URINE NEGATIVE (NEGATIVE); LEUKOCYTE ESTERASE,URINE NEGATIVE (NEGATIVE); NITRITE,URINE NEGATIVE (NEGATIVE); OCCULT BLOOD,URINE NEGATIVE (NEGATIVE); PH,URINE 5.5 (5.0-8.0); PROTEIN,URINE NEGATIVE (NEGATIVE); UROBILINOGEN,URINE 0.2 EU/dL (<2.0)
[2024-10-14] MEDS: Ketorolac 10 MG Tab PO ONE (11:52)
[2024-10-14] MEDS: Cyclobenzaprine 10 MG Tab PO ONE (11:53)
[2024-10-14 12:16] LABS: BASOPHILS ABSOLUTE AUTO 0.07 K/uL (0.00-0.20); EOSINOPHILS ABSOLUTE AUTO 0.09 K/uL (0.00-0.45); EOSINOPHILS PERCENT AUTO 1.3 % (0.0-6.0); HEMATOCRIT 34.7 % (37.0-47.0); IMMATURE GRAN ABSOLUTE AUTO 0.03 K/uL (0.00-0.05); IMMATURE GRAN PERCENT AUTO 0.4 % (0.0-0.4); LYMPHOCYTES PERCENT AUTO 22.1 % (24.0-44.0); MEAN CORPUSCULAR HEMOGLOBIN 31.2 pg (28.0-32.0); MEAN CORPUSCULAR HGB CONC 34.6 g/dL (32.0-36.0); MEAN CORPUSCULAR VOLUME 90.1 fL (83.0-99.0); MONOCYTES PERCENT AUTO 13.2 % (0.0-8.0); NEUTROPHILS ABSOLUTE AUTO 4.21 K/uL (1.80-7.70); PLATELET COUNT,PLT 280 K/uL (150-400); RED BLOOD CELL COUNT 3.85 M/uL (4.10-5.30)
[2024-10-14 12:45] LABS: ALANINE AMINOTRANSFERASE,ALT 39 IU/L (14-63); ALBUMIN 3.5 g/dL (3.4-5.0); ALKALINE PHOSPHATASE 128 U/L (46-116); ASPARTATE AMNIOTRANSFERASE,AST 32 IU/L (15-37); BILIRUBIN TOTAL 0.7 mg/dL (0.2-1.0); BLOOD UREA NITROGEN,BUN 7 mg/dL (7.0-18.0); CALCIUM 9.6 mg/dL (8.5-10.1); CARBON DIOXIDE,CO2 27.3 mmol/L (21.0-32.0); CHLORIDE,CL 90 mmol/L (98-107); CREATININE 0.9 mg/dL (0.6-1.0); GLUCOSE RANDOM 101 mg/dL (74-106); MAGNESIUM 1.4 mg/dL (1.8-2.4); POTASSIUM,K 4.4 mmol/L (3.5-5.1); SODIUM,NA 126 mmol/L (136-145)
[2024-10-14 12:49] LABS: ESTIMATED GFR 76 mL/min (>60)
[2024-10-14] MEDS ORDERED: Sodium Chloride 0.9% 20 ML SDV IV PRN (14:06)
[2024-10-14] MEDS: Sodium Chloride 0.9% 1,000 ML IV SCH (14:24)
[2024-10-14] MEDS: Magnesium Sulfat/D5W 1GM/100ML 1 GM in Premix Bag 1 BAG IV ONE (14:26)
[2024-10-14 14:53] LABS: BLOOD UREA NITROGEN,BUN 7 mg/dL (7.0-18.0); CALCIUM 9.1 mg/dL (8.5-10.1); CARBON DIOXIDE,CO2 28.6 mmol/L (21.0-32.0); CHLORIDE,CL 90 mmol/L (98-107); GLUCOSE RANDOM 97 mg/dL (74-106); POTASSIUM,K 3.7 mmol/L (3.5-5.1); SODIUM,NA 126 mmol/L (136-145)
[2024-10-14 14:54] LABS: ESTIMATED GFR 67 mL/min (>60)
[2024-10-14 16:28] LABS: BLOOD UREA NITROGEN,BUN 6 mg/dL (7.0-18.0); CALCIUM 8.4 mg/dL (8.5-10.1); CARBON DIOXIDE,CO2 28.4 mmol/L (21.0-32.0); CHLORIDE,CL 93 mmol/L (98-107); CREATININE 0.9 mg/dL (0.6-1.0); GLUCOSE RANDOM 97 mg/dL (74-106); POTASSIUM,K 3.8 mmol/L (3.5-5.1); SODIUM,NA 129 mmol/L (136-145)
[2024-10-14 16:29] LABS: ESTIMATED GFR 76 mL/min (>60)
== END 2024-10-14 17:42 | disposition home or self-care (01) ==
LOC: MW.ED 10:43
DX: M54.50 Low back pain, unspecified (principal); E83.42 Hypomagnesemia; E87.1 Hypo-osmolality and hyponatremia; I10 Essential (primary) hypertension; Z88.8 Allergy status to other drugs, medicaments and biological substances; Z79.899 Other long term (current) drug therapy; Z90.49 Acquired absence of other specified parts of digestive tract; Z87.891 Personal history of nicotine dependence
CPT/HCPCS: 36415; 74176; 80048; 80053; 81003; 82306; 83735; 85025; 93005; 96365; 99284; A9270; J3475; J7030; 93010